=== PATIENT | female | born 1960 | race Caucasian/White ===

== ENCOUNTER 2017-07-17 23:41 | Inpatient (IN) | payer OTHER ==
[~2017-07-17] VITALS: Ht 154.9 cm; Wt 94.7 kg
[~2017-07-17 23:41] MED LIST: ABILIFY10 MG PO; BUPROPION XL150 MG PO; BUSPAR15 MG PO; EFFEXOR XR150 MG PO; EFFEXOR XR75 MG PO; FEOSOL325 MG PO; FIORICET,ESG1 TABLET PO; GABAPENTIN300 MG PO; HYDROCHLOROTHIA25 MG PO; NEURONTIN300 MG PO; NORCO 5/3251 TABLET PO; PERCOCET 5/31 TABLET PO; REQUIP3 MG PO; TRAMADOL HCL50 MG PO; TRICOR145 MG PO; VENLAFAXINE HC150 M1 PO; ZOLOFT100 MG PO; ZOLOFT50 MG PO
[2017-07-18 06:52] VITALS: BP 110/64
[2017-07-18 10:29] LABS: HEMATOCRIT 38.8 % (36.0-46.0); MCV 88.2 FL (83-99)
[2017-07-18 11:00] VITALS: BP 100/68
[2017-07-18 15:39] VITALS: BP 104/60
[2017-07-18 19:34] VITALS: BP 114/53
[2017-07-18 21:38] VITALS: BP 111/55
[2017-07-18 23:58] VITALS: BP 140/67
[2017-07-19 04:24] VITALS: BP 124/58
[2017-07-19 07:08] LABS: HEMATOCRIT 29.2 % (36.0-46.0); MCV 86.4 FL (83-99)
[2017-07-19 07:28] LABS: ANION GAP 9 MEQ/L (2-14); CHLORIDE 103 MEQ/L (99-109); GFR ESTIMATE (CALCULATED) > 59 mL/min/; GLUCOSE 141 mg/dL (70-99); POTASSIUM 4.3 MEQ/L (3.7-5.4); SAMPLE HEMOLYSIS CHECK 0; SAMPLE ICTERIC CHECK 0; SAMPLE LIPEMIA CHECK 0; SODIUM 136 MEQ/L (136-147); UREA NITROGEN (BUN) 20 mg/dL (9-23)
[2017-07-19 08:28] VITALS: BP 123/65
[2017-07-19 12:07] VITALS: BP 110/54
[2017-07-19 20:11] VITALS: BP 124/55
[2017-07-20 00:07] VITALS: BP 98/56
[2017-07-20 04:24] VITALS: BP 101/57
[2017-07-20 08:06] VITALS: BP 104/58
[2017-07-20 12:22] VITALS: BP 95/54
[2017-07-20 15:53] VITALS: BP 112/53
[2017-07-20 19:26] VITALS: BP 114/55
[2017-07-21 00:02] VITALS: BP 117/55
[2017-07-21 04:30] VITALS: BP 107/59
[2017-07-21 08:10] VITALS: BP 103/53
[2017-07-21] MEDS ORDERED: TYLENOL REGULA325 MG PO (10:06)
[2017-07-21] MEDS ORDERED: OXYCODONE HCL5 MG PO (10:07)
[2017-07-21] MEDS ORDERED: SENNA PLUS TAB1 EACH PO (10:07)
[2017-07-21] MEDS ORDERED: ELIQUIS2.5 MG PO (10:07)
[2017-07-21 11:59] VITALS: BP 115/57
== END 2017-07-21 14:38 | DRG 470 ==
LOC: ENRESERV 23:41 → 3WEST 07-18 05:40 → 2SOUTH 07-18 05:40 → 3WEST 07-18 10:43 → 2SOUTH 07-18 11:08 → 3WEST 07-21 14:38
PROVIDERS: Orthopaedic Surgery
PROC: 0SRB04A Replacement of Left Hip Joint with Ceramic on Polyethylene Synthetic Substitute, Uncemented, Open Approach (ICD-10-PCS; principal; 2017-07-18)
DX: M16.12 Unilateral primary osteoarthritis, left hip (principal); M79.7 Fibromyalgia; Z90.5 Acquired absence of kidney; M70.62 Trochanteric bursitis, left hip; N18.2 Chronic kidney disease, stage 2 (mild); F17.210 Nicotine dependence, cigarettes, uncomplicated; G89.29 Other chronic pain; Z91.81 History of falling; M76.02 Gluteal tendinitis, left hip; E66.9 Obesity, unspecified; Z68.39 Body mass index [BMI] 39.0-39.9, adult; M62.81 Muscle weakness (generalized)
CPT/HCPCS: 71010; 80048; 85014; 85018; 93971; 94799; 97530 GO; J0131; J0690; J1100; J1885; J2250; J2405; J3010; J7050; J7120; S0020

== ENCOUNTER 2018-03-07 21:13 | Emergency (ER) | payer OTHER ==
[~2018-03-07] VITALS: Ht 157.5 cm; Wt 102.0 kg
[~2018-03-07 21:13] MED LIST changes: +ELIQUIS2.5 MG PO; +OXYCODONE HCL5 MG PO; +SENNA PLUS TAB1 EACH PO; +TYLENOL REGULA325 MG PO
[2018-03-07 21:54] LABS: HEMATOCRIT 42.3 % (36.0-46.0); HEMOGLOBIN 14.5 G/DL (11.9-15.5); MCH 29.7 PG (29.0-34.0); MCHC 34.3 G/DL (30.0-36.0); MCV 86.7 FL (83-99); PLATELET COUNT 279 K/uL (156-360); RBC DIS.WIDTH-CV 13.1 % (11.8-14.6); RBC DIS.WIDTH-SD 41.3 % (39-53); RED BLOOD COUNT 4.88 M/uL (3.80-5.20); WHITE BLOOD COUNT 9.8 K/uL (4.1-10.2)
[2018-03-07 22:00] LABS: CHLORIDE 103 mEq/L (99-109)
[2018-03-07 22:01] LABS: SODIUM 141 mEq/L (136-147)
[2018-03-07 22:02] LABS: GLUCOSE 104 mg/dL (70-99)
[2018-03-07 22:06] LABS: GFR ESTIMATE (CALCULATED) > 59 mL/min/
[2018-03-07 22:07] LABS: UREA NITROGEN (BUN) 22 mg/dL (9-23)
[2018-03-07 22:12] LABS: TROP-I INTERPRETATION NEGATIVE; TROPONIN-I < 0.01 ng/mL (0.0-0.30)
[2018-03-07] MEDS ORDERED: PERCOCET 5/31 TABLET PO (23:00)
[2018-03-07 23:24] VITALS: BP 109/67
== END 2018-03-07 23:16 | disposition home or self-care (01) ==
LOC: EME 21:13
PROVIDERS: Emergency Medicine
DX: M94.0 Chondrocostal junction syndrome [Tietze] (principal); F17.200 Nicotine dependence, unspecified, uncomplicated; Z87.442 Personal history of urinary calculi; Z90.710 Acquired absence of both cervix and uterus; Z88.5 Allergy status to narcotic agent
CPT/HCPCS: 71046; 80048; 84484; 85027; 93005; 99281; 99285; J1885